=== PATIENT | male | born 1990 | race American Indian/Alaskan Native ===

== ENCOUNTER 2021-04-28 15:42 | Emergency (ER) | payer OTHER ==
[2021-04-28 15:48] VITALS: BP 135/82
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
== END 2021-04-28 17:59 | disposition home or self-care (01) ==
LOC: ED 15:42
DX: S13.4XXA Sprain of ligaments of cervical spine, initial encounter (principal); M79.10 Myalgia, unspecified site; F12.10 Cannabis abuse, uncomplicated; Z98.890 Other specified postprocedural states; Z79.1 Long term (current) use of non-steroidal anti-inflammatories (NSAID); Z79.899 Other long term (current) drug therapy; Z91.018 Allergy to other foods; V49.49XA Driver injured in collision with other motor vehicles in traffic accident, initial encounter; Y93.89 Activity, other specified; Y92.410 Unspecified street and highway as the place of occurrence of the external cause; Y99.8 Other external cause status
CPT/HCPCS: 99282